=== PATIENT | female | born 1975 | race Caucasian/White ===

== ENCOUNTER → 2016-05-16 | Outpatient (CLI) | payer BC ==
--- NOTE | 2016-05-16 16:17 | DI ---
MRI LUMBAR SPINE W/O CN,05/16/2016 10:10 AM: Clinical History: Osteoarthritis of the spine with radiculopathy of the lumbar region. Previous Exam: None at this facility. Findings: Multiplanar MR images are obtained through the lumbar spine without contrast. Bony alignment is anato jodee. No fractures are seen. Marrow signal is preserved. The kidneys are normal. The paraspinal musculature is unremarkable. There is grade 1 retrolisthesis of L4 on L5 without evidence of spondylolysis nor spondylolisthesis. The major vascular flow voids are unremarkable. The spinal cord descends normally with normal course, caliber and signal characteristics with a pool l conus at the L2 level. Individual intervertebral disc spaces: L1/2: No significant stenosis. L2/3: No significant stenosis. L3/4: No significant stenosis. L4/5: There is grade 1 retrolisthesis of L4 and L5 with disc desiccation and a broad-based disc bulge combining with facet and ligamentum flavum hypertrophy causing no significant stenosis. L5/S1: There is disc desiccation, loss of intervertebral disc height and endplate degenerative change s with some facet and ligamentum flavum hypertrophy contributing to moderate to severe left lateral r ecess stenosis and mild right lateral recess stenosis. Impression:
--- NOTE | 2016-05-16 16:29 | DI ---
XR T-SPINE 2VW,05/16/2016 10:10 AM: Clinical History: Thoracic radiculopathy. Previous Exam: None at this facility. Findings: AP and lateral views of the thoracic spine are obtained, and demonstrate 26? of levoscoliosis of the upper thoracic spine centered at the T3/4 level. The lungs are clear. Impression: Levoscoliosis of the upper thoracic spine at the T3/4 level measuring approximately 26?.
--- NOTE | 2016-05-16 16:32 | DI ---
XR L-SPINE MIN 4 VW,05/16/2016 10:10 AM: Clinical History: Osteoarthritis of the spine with radiculopathy of the lumbar region. Previous Exam: None at this facility. Findings: AP, lateral, flexion and extension views of the lumbar spine are obtained, and demonstrate some gentl e levoscoliosis of the lumbar spine centered at the L2/3 level. There are degenerative changes of the posterior articulating facets. There is vacuum disc phenomenon and near complete loss of interverteb ral disc height at L5/S1. No pathologic calcifications are seen. A nonobstructive bowel gas pattern is noted. Impression: Mild levoscoliosis of the mid lumbar spine. Degenerative changes of L5/S1.
== END ==
LOC: MRI 10:00
PROVIDERS: ATTEND Neurological Surgery
DX: M47.26 Other spondylosis with radiculopathy, lumbar region (principal); M54.14 Radiculopathy, thoracic region; M51.37 Other intervertebral disc degeneration, lumbosacral region
CPT/HCPCS: 72070; 72110; 72148

== ENCOUNTER → 2016-05-17 | Outpatient (CLI) | payer BC ==
--- NOTE | 2016-05-17 16:34 | DI ---
MRI THORACIC SPINE W/O CN,05/17/2016 10:27 AM: Clinical History: Thoracic radiculopathy. Previous Exam: No other previous MRI comparison. Findings: Multiplanar MR images are obtained through the thoracic spine without contrast. There is levoscoliosis of the thoracic spine centered at the T2/3 level. There is some compensatory d extroscoliosis at the T6/7 level. Vertebral body height is preserved. There is some disc desiccation at the C6/7 level with a broad-bas ed disc bulge only partially visible on this exam but causing at least mild neural foraminal narrowin g. The spinal cord descends normally with normal course and caliber. There is fluid signal within the ce ntral spinal cord which is visible extending from T4-T11. C7/T1: No significant stenosis. T2/3: No significant stenosis. T3/4: There is disc desiccation and a broad-based disc bulge contributing to mild central canal steno sis without significant neural foraminal narrowing. T4/5: No significant stenosis. T5/6: Mild disc desiccation and no significant stenosis. T6/7: There is disc desiccation and a broad-based disc bulge causing mild central canal stenosis with out significant neural foraminal narrowing. T7/8: No significant stenosis. T8/9: There is disc desiccation and a broad-based disc bulge without significant stenosis. T9/T10: No significant stenosis. T10/11: No significant stenosis. T11/12 and T12/L1: No significant stenosis. Impression: 1. S-shaped scoliosis of the thoracic spine as above. 2. Disc desiccation at multiple levels without significant broad-based disc bulge. 3. Prominence of the central canal within the spinal cord extending from T4-T11. This most likely rep resents a prominent central canal. This is usually a normal variant. Rarely, this can represent syrin gomyelia, but this usually presents with deficits in pain and sensation corresponding with the affect ed levels. Correlate clinically.
== END ==
LOC: MRI 10:22
PROVIDERS: ATTEND Physician Assistant
DX: M54.14 Radiculopathy, thoracic region (principal); M51.34 Other intervertebral disc degeneration, thoracic region; M41.84 Other forms of scoliosis, thoracic region
CPT/HCPCS: 72146

== ENCOUNTER → 2016-05-17 | Outpatient (CLI) | payer BC ==
[2016-05-17 17:52] LABS: ASPARTATE AMINO TRANSFERASE 22 IU/L (8-39); BILIRUBIN,TOTAL 0.2 mg/dL (0.3-1.2); BLOOD UREA NITROGEN 17 mg/dL (7-22); BUN/CREATININE RATIO 24.28 (6-20); C-REACTIVE PROTEIN 1.5 mg/dL (0.0-0.9); CALCIUM 9.8 mg/dL (8.7-10.7); CHLORIDE 104 meq/L (98-112); CREATININE 0.7 mg/dL (0.50-1.20); EST GLOMERULAR FILTRATION > 60 (>60 ml/min/1.73m(2)); GLUCOSE 116 mg/dL (78-110); POTASSIUM 4.4 meq/L (3.8-5.2); SODIUM 136 meq/L (135-145); TOTAL PROTEIN 7.1 g/dL (6.1-8.0)
== END ==
LOC: LAB 17:17
PROVIDERS: ATTEND Family Medicine
DX: R06.09 Other forms of dyspnea (principal); M54.5 Low back pain; F17.210 Nicotine dependence, cigarettes, uncomplicated
CPT/HCPCS: 36415; 80053; 85379; 85652; 86140

== ENCOUNTER → 2016-05-29 | Outpatient (CLI) | payer BC ==
--- NOTE | 2016-05-31 09:23 | DI ---
STANDING SCOLIOSIS SERIES, 05/29/2016 8:53 AM: Clinical History: Scoliosis. Previous Exam: None at this facility. Standing AP and lateral views are submitted. The vertebral bodies are of normal height and size. The disc spaces are normal. The pedicles and posterior elements are unremarkable. There is dextroscolios is of the cervical thoracic junction and the lower thoracic spine with levoscoliosis of the upper tho racic spine and the mid lumbar spine. Brown angles for the thoracic and lumbar regions are 10 degrees, 21 degrees, 15 degrees, and 14 degrees, respectively. The pelvis is tilted in the right side of the pelvis is higher than the left side. Spinal-Pelvic Relationship Measurements: SVA: -2 mm. T1 Tilt: -4 degrees. PT: 7 degrees. PI: 54 degrees. SS: 47 degrees. LL: 64 degrees. TK: 32 degrees. Readin. Scoliosis as above with the respective the pelvis is tilted so that the right side of the pelvis is situated higher than the left side. 2. Spinal-pelvic relationship measurements as above.
== END ==
LOC: RAD 08:46
PROVIDERS: ATTEND Physician Assistant
DX: M41.25 Other idiopathic scoliosis, thoracolumbar region (principal)
CPT/HCPCS: 72082

== ENCOUNTER → 2016-06-05 | Outpatient (CLI) | payer BC ==
--- NOTE | 2016-06-06 16:45 | DI ---
MRI THORACIC SPINE SCAN WITHOUT AND WITH IV CONTRAST, 06/05/2016 11:10 AM: Clinical History: Syrinx of the thoracic cord. Previous Exam: 05/17/2016. Technique: Sagittal precontrast and sagittal and axial postcontrast T1 weighted scans are supplemente d with a coronal T2 weighted scans. 15 mL of OptiMARK MRI contrast was injected IV. There is levoscoliosis of the upper thoracic spine with a compensatory dextroscoliosis of the lower t horacic spine. The vertebral bodies are of normal height and size. The disc spaces are normal. The pr evious study demonstrated a syrinx between T6-T10 and on the current study with the T1-weighted seque nces, the syrinx is visible primarily between T7 and T9 and this is because of the signal intensity f or fluid on the T1-weighted sequence. Following contrast, no abnormal enhancing lesion is seen within the cord. There is no extradural lesion or enhancement and there is no intradural extramedullary les ion or enhancement. Reading: With the T1-weighted sequences, the syrinx in the thoracic cord is not as well demonstrated as was se en on the T2-weighted images from the study of 05/17/2016. Following contrast, no abnormal enhancement is identified.
== END ==
LOC: MRI 11:03
PROVIDERS: ATTEND Physician Assistant
DX: G95.0 Syringomyelia and syringobulbia (principal)
CPT/HCPCS: 72147; A9579

== ENCOUNTER → 2016-06-06 | Outpatient (CLI) | payer BC ==
--- NOTE | 2016-06-06 13:28 | DI ---
MRI CERVICAL SPINE SCAN, 06/06/2016 11:03 AM: Clinical History: Cervical radiculopathy. Previous Exam: None. Sequences: Sagittal T1and T2 weighted. Axial T2 PLUS and FE 3D DUAL. Coronal T1 scans through the upp er cervical spine. The vertebral bodies are of normal height and size. There is levoscoliosis of the upper thoracic spin e. Severe disc space narrowing is present at C6-7. The remaining disc spaces are of normal height and all cervical disc spaces show mild to moderate desiccation change. The cervical cord and cerebellar tonsils are normal. The disc spaces from C2-3 through C5-6 are normal. C6-7 has a bulging but not her niated disc without canal or significant neural foraminal stenosis. C7-T1 and T1-2 disc spaces are no rmal. T2-3 through T5-6 disc spaces have bulging but not herniated discs without canal or neural fora darren stenosis. Readin. There are bulging but not herniated discs without canal or neural foraminal stenosis at C6-7 and T2- through T5-6. 2. The disc spaces from C2-3 through C5-6 and at C7-T1 and T1-2 are normal.
== END ==
LOC: MRI 11:01
PROVIDERS: ATTEND Physician Assistant
DX: M54.12 Radiculopathy, cervical region (principal); M47.813 Spondylosis without myelopathy or radiculopathy, cervicothoracic region
CPT/HCPCS: 72141

== ENCOUNTER → 2016-06-14 | Outpatient (CLI) | payer BC ==
--- NOTE | 2016-06-17 08:57 | DI ---
XR C-SPINE COMPLETE MIN 4VW,06/14/2016 9:24 AM: Clinical History: Osteoarthritis with radiculopathy Previous Exam: None at this facility. Findings: AP, lateral, flexion and extension views of the cervical spine are obtained, and demonstrate degenera tive disc disease worst at the C6/7 level where there is loss of intervertebral disc height and endpl ate osteophyte formation. There are also uncovertebral joint osteophytes at this level. There is no i nstability on flexion or extension. The prevertebral soft tissues are unremarkable. Impression: Degenerative disc disease at C6/7 as above otherwise unremarkable.
== END ==
LOC: RAD 09:21
PROVIDERS: ATTEND Physician Assistant
DX: M47.22 Other spondylosis with radiculopathy, cervical region (principal)
CPT/HCPCS: 72050

== ENCOUNTER → 2016-07-30 | Outpatient (CLI) | payer BC ==
[2016-07-30 12:50] LABS: BASOPHILS # (AUTO) 0.02 10*3/UL; BASOPHILS % (AUTO) 0.4 % (0-1); EOSINOPHILS % (AUTO) 1.9 % (0-8); HEMATOCRIT 35.5 % (37.0-47.0); HEMOGLOBIN 10.7 g/dL (12.0-16.0); LYMPHOCYTES # (AUTO) 1.69 10*3/uL; MEAN CORPUSCULAR HGB CONC 30.1 g/dL (33-37); MEAN CORPUSCULAR VOLUME 82.9 FL (81-99); MEAN PLATELET VOLUME 11.6 FL (7.4-12.2); MONOCYTES # (AUTO) 0.34 10*3/UL (0.3-0.8); MONOCYTES % (AUTO) 6.4 % (5-15); NEUTROPHILS # (AUTO) 3.18 10*3/UL; NEUTROPHILS % (AUTO) 59.5 % (50-80); RED BLOOD COUNT 4.28 10^6/uL (4.20-5.40)
[2016-07-30 12:52] LABS: PLATELET MORPHOLOGY COMMENT NORMAL MORPHOLOGY (NORM); RBC MORPHOLOGY COMMENT NORMAL MORPHOLOGY (NORM); WBC MORPHOLOGY COMMENT NORMAL MORPHOLOGY (NORM)
[2016-07-30 13:11] LABS: BLOOD UREA NITROGEN 18 mg/dL (7-22); CALCIUM 8.7 mg/dL (8.7-10.7); EST GLOMERULAR FILTRATION > 60 (>60 ml/min/1.73m(2)); LIPASE 57 IU/L (23-300); SERUM ALBUMIN 3.6 g/dL (3.5-4.8)
== END ==
LOC: MOB LAB 11:25
PROVIDERS: ATTEND Surgery
DX: R10.11 Right upper quadrant pain (principal)
CPT/HCPCS: 36415; 80053; 82150; 83690; 85025

== ENCOUNTER → 2016-07-31 | Outpatient (CLI) | payer BC ==
[2016-08-02 13:22] LABS: PARASITIC EXAM FIN 1218 (())
== END ==
LOC: LAB 17:13
PROVIDERS: ATTEND Surgery
DX: R19.7 Diarrhea, unspecified (principal)
CPT/HCPCS: 87046; 87177; 87209; 87328; 87329; 87493

== ENCOUNTER 2016-09-19 11:01 | Emergency (ER) | payer BC ==
[2016-09-19 11:27] VITALS: RESP 15; TEMP 97.2
[2016-09-19] MEDS ORDERED: MEPERIDINE HCL/PF 100 MG/1 ML INJECTION IM ONE (12:03)
--- NOTE | 2016-09-19 12:17 | PDOC ---
Back Pain / Injury HPI - General Chief Complaint: Neck / Back Complaint Stated Complaint: back pain Date Seen by Provider: 09/19/16 Time Seen by Provider: 11:15 Source: Patient Exam Limitations: POSITIVE: No limitations Nurse's Notes Reviewed & Considered: Yes - History of Present Illness Initial Comments: The patient is a 41-year-old female who presents to the emergency room with a chief complaint of low back pain. Recent past medical history is significant in that the patient underwent an L4-L5-S1 lumbar fusion in [place] on 20 August. She states that she has a 7 year history of chronic back pain. She states that 4 days ago she stumbled when her left leg "gave out" and this exacerbated her pain. 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 She was last evaluated postoperatively by her neurosurgeon in [place] on 06 September, and is scheduled for reevaluation again on 27 September. Patient states she has had some "numbness" proximal aspect of both lower extremities, and her neurosurgeon is aware of this. She denies any neck motor weakness. No fevers or chills. No GI or symptoms. Body Location Affected: REPORTS: Back (Lower back) Timing: REPORTS: Constant Duration: <1 week (Exacerbation of chronic low back pain for about the past 4-5 days) Severity: Moderate Quality: REPORTS: "Pain" Context: REPORTS: Fall Location at Time of Onset: REPORTS: Home Modifying Factors: improves with: Movement (Discomfort with movement) Associated Symptoms: REPORTS: Back pain, Numbness (Proximal portion of both lower extremities as above). DENIES: Bloody Emesis, Chest pain, Coffee Grounds Emesis, Chills, Diaphoresis, Fever, Fatigue, Headache, Heartburn, Loss of Appetite, Nausea, Rash, Shortness of breath, Swelling/mass in abdomen, Syncope, Testicular Pain, Vomiting, Weakness, Grossly Bloody Diarrhea, Constipation, Diarrhea, Dysuria, Incontinent Stool, Incontinent Urine, Mucous Diarrhea, Difficulty Walking, Dizziness, Light Headedness Similar Symptoms Previously: Yes (7 year history of chronic low back pain as above) Recent Care Received: REPORTS: Recently Seen, Treated by MD, Hospitalized, Surgery (L4-L5-S1 lumbar fusion done 20 August as above) Any Prior Injuries Related to Current Complaint?: Yes (as above; 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) - Patient Home Medications Home Medications: Home Medications Albuterol Sulfate [Proair Hfa] 1 - 2 puff INH Q4-6H #1 puff 05/31/16 Fluticasone/Salmeterol [Advair 100-50 Diskus] 1 puff INH BID #1 puff 05/31/16 Naproxen 1 tab PO BID #60 tab 05/31/16 Gabapentin 2 tab PO TID #180 tab 07/24/16 Amitriptyline HCl 1 tab PO QHS #30 tab 08/07/16 Amlodipine Besylate 1 tab PO DAILY #30 tab 08/07/16 Lisinopril 1 tab PO DAILY #30 tab 08/07/16 Alprazolam [Xanax] 1 tab PO QD PRN #30 tab 08/23/16 Bupropion HCl [Wellbutrin Sr] 1 tab PO BID #60 tab 08/23/16 Cyclobenzaprine HCl 1 tab PO TID tab 08/23/16 Hydrocodone Bit/Acetaminophen [[place] 10-325 Tablet] 1 tab PO Q6H PRN #25 tab - Patient Allergies Allergies/Adverse Reactions: Allergies Allergy/AdvReac Type Severity Reaction Status Date / Time tramadol AdvReac Mild Itching Verified 09/19/16 11:13 Past Medical History - heen HEENT History: Denies History Cardiovascular History: Hypertension Respiratory History: COPD, Other (please comment) Additional Respiratory History: smoker Gastrointestinal History: GERD, Pancreatitis Additional Gastrointestinal History: ABD PAIN, DIARRHEA. HOSPITAL ADMISSION FOR PANCREATITIS Genitourinary History: Denies History Endocrine History: Denies History Musculoskeletal History: Back Pain, Other (please comment) Additional Musculoskeletal History: chronic neck/back pain Neurological History: Denies History Blood Disorders: Anemia Psychiatric History: Depression, Anxiety Disorders Female Reproductive History: Denies History LMP: 09/10/17 Obstetrical History: Denies History Cancer History: Denies History In Past Year Been Physically Harmed or Verbally Threatened: No History of MDRO: No Tobacco Use: Current Every Day Smoker Alcohol Use: None Substance Use Type: None Previous Surgical History: Yes Type / Date of Surgery: T&A/ CERVICAL LEEP/hernia repair. L4,L5,S1 FUSION Anesthesia Reactions: No Malignant Hyperthermia: No Significant Family History: No pertinent family hx Past Medical History Reviewed: Reviewed - No Changes ROS - Limitations ROS Limitations: No Limitations Constitution: REPORTS: Denies Symptoms Cardiovascular: REPORTS: Denies Cardiac Symptoms Respiratory: REPORTS: Denies Resp Symptoms Neurological: REPORTS: Denies Neuro Symptoms, Numbness Gastrointestinal: REPORTS: Denies GI Symptoms Endocrine: REPORTS: Denies Symptoms Musculoskeletal: REPORTS: Back Pain (Low back pain as above), Recent Injury (As above) Genitourinary: REPORTS: Denies Symptoms Eyes: REPORTS: Denies Symptoms ENT: REPORTS: Denies Symptoms Skin: REPORTS: Denies Skin Symptoms Lympathic: REPORTS: Denies Lympathic Symptoms Immunologic: POSITIVE: Denies Symptoms Psychiatric: POSITIVE: Denies Psych Symptoms Back Physical Assessment - General Appearance General Appearance: REPORTS: Alert, Cooperative, No Evidence of Trauma, Mild Distress (Due to low back pain) - HEENT HEENT: POSITIVE: Head Inspection Nml, Eyes Inspection Nml, Ears Inspection Nml, Nose Inspection Nml, Oral/Dental Inspect. Nml, Pharynx Inspect. Nml, PERRL, EOMI - Pupil Size Pupil Size: 3 mm: Bilateral (PERRLA) - Neck Neck: POSITIVE: Non Tender, Painless ROM, Trachea Midline, Nexus Criteria Negative - Respiratory / CVS Respiratory / CVS: POSITIVE: Chest Non Tender, No Ecchymosis, Breath Sounds Normal, No Respiratory Distress, Heart Sounds Normal, Regular Rate/Rhythm - Abdomen Abdomen: Soft: (All Quadrants), Normal Bowel Sounds: (All Quadrants), Denies Tenderness: (All Quadrants), No Splenomegaly: (All Quadrants), No Hepatomegaly: (All Quadrants), No Guarding: (All Quadrants), No Rebound: (All Quadrants), No Palpable Pulse: (All Quadrants), No Palpabale Mass: (All Quadrants), No Distention: (All Quadrants), No Rigidity: (All Quadrants) - Back Back: REPORTS: No Vertebral Tenderness, Limited ROM, See Diagram. DENIES: Normal Inspection (Well-healed surgical scar lumbar area; no redness, drainage or signs of infection.), No CVA Tenderness, Non Tender (Tender on palpation over the paralumbar area bilaterally), Painless ROM (Pain with extension and flexion), Vertebral Pt. 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 No gross abnormalities otherwise. - Patient's Progress Pain Medication Addressed: POSITIVE: Yes (Patient given 100 mg Demerol IM and prescribed [place], 10/325 one every 6 hours as necessary for pain) School/Work Release Addressed: POSITIVE: Yes (Recommended no work for 72 hours, and then to lift no more than 10 pounds until cleared for increased activity by her neurosurgeon.) Re-Examine Time: 12:00 Status: POSITIVE: Unchanged, Re-Examined - Consult Counseled: POSITIVE: Patient, RE: Radiology Results, RE: DX, RE: Need for F/U Patient Care Time - Estimated PCT Patient Care Time (In Minutes): 32 Vital Signs - Recent Vital Signs Vital Signs: Vital Signs (Last 8 hours) Temp Pulse Resp BP Pulse Ox 09/19/16 11:12 97.2 F 107 H 15 119/59 94 - VS Reviewed Vital Signs Reviewed: Yes Discharge Clinical Impression: Chronic back pain, Post-op pain Discharge Disposition: Discharged to Home Condition: Stable Prescriptions / Orders: Hydrocodone Bit/Acetaminophen [[place] 10-325 Tablet] 1 tab PO Q6H PRN #25 tab PRN Reason: Pain Patient Instructions Given at Discharge: Low Back Strain (ED), Chronic Back Pain (ED) Additional Instructions: Rest. No work for 72 hours. Not to lift over 10 pounds at work until cleared for this activity by your neurosurgeon. Continue [place], one every 6 hours as necessary for pain. Follow-up with your neurosurgeon on 27 September, as is already arranged. Return here anytime if condition worsens in any way. Follow Up With: HEDY WREN [Primary Care Provider] - (Instructions as above. Follow-up with your neurosurgeon and primary care provider. Return as necessary.)
--- NOTE | 2016-09-19 12:59 | DI ---
XR L-SPINE 2-3 VW,09/19/2016 11:32 AM: Clinical History: Back pain status post recent fusion. Previous Exam: 05/16/16 Findings: AP, lateral and coned-down views of the lumbar spine are obtained, and demonstrate some stable levosc oliosis of the lumbar spine. There is transpedicular screw and plate fixation of L4-S1. There is a sm all fracture through the superior endplate of the L4 vertebral body likely related to prior surgery. There is also new calcified fusion of the transverse processes. A nonobstructive bowel gas pattern is seen. Patient is status post laminectomies at L4 and L5. No pathologic calcifications are seen. Impression: Postsurgical changes consistent with transpedicular, interbody and transverse fusion of L4-S1. There is a new fracture involving the fourth vertebral body. This may represent a fracture of the vertebral body or the pedicle although this is not well seen. CT may delineate the process more clearly.
== END 2016-09-19 12:53 | disposition home or self-care (01) ==
LOC: ER 11:01
DX: G89.18 Other acute postprocedural pain (principal); M54.5 Low back pain; R20.0 Anesthesia of skin; I10 Essential (primary) hypertension
CPT/HCPCS: 72100; 96372; 99283; J2175

== ENCOUNTER → 2016-09-26 | Outpatient (CLI) | payer BC ==
--- NOTE | 2016-09-26 22:07 | DI ---
CT LUMBAR SPINE SCAN, 09/26/2016 11:54 AM : Clinical History: Back pain. Status post multilevel fusions. Previous Exam: None at this facility. Scans are obtained from the T11 disc space to S4. without IV contrast using standard bone enhancement algorithms and with a metal artifact reduction algorithm. Sagittal and coronal reformatted images ar e generated. Curved coronal reformatted images and axial reformatted images angled through the disc s paces are also performed. The vertebral bodies are of normal height and size. The patient is status post L4 and L5 laminectomie s with anterior and posterior fusions at L4-5 and L5-S1. Anterior fusions are performed with bone gra ft cages, and posterior fusions are accomplished with metallic struts transfixed with pedicle screws from L4-S1 as well as bone grafts. The height of the bone graft cage at L4-5 is greater than the heig ht of the bone graft cage at L5-S1. There is a fracture that courses transversely and inferiorly thro ugh the superior endplate of L4 in the posterior fourth of the L4 vertebral body. This fracture then extends horizontally and posteriorly through the superior half of each pedicle, and then continues in to the superior facets of L4 bilaterally. The appearance is consistent with a stress fracture. Enterprise Solutions Architect ior alignment between the posterior margin of L3 and the small fracture fragment of the posterior asp ect of L4 is normal. However, the body of L4 is displaced anteriorly relative to the body of L3 by ab out 2-3 mm. This amount of displacement corresponds to the distraction between the body of L4 and the small fracture fragment of L4. The fusions anteriorly at L4-5 and L5-S1 are not solid. The bone patti ts posteriorly are also not solid. The pedicles from T12-L3 are normal. There is disc space narrowing at L3-4. Axial and sagittal scans through T12-L1 through L2-3 are normal. L3-4 has a circumferentially bulging but not herniated disc without canal or neural foraminal stenosis. Artifacts are present at the L4-5 and L5-S1 disc space levels but there is no canal or neural foraminal stenosis at either level. READIN. Status post anterior and posterior fusions at L4-5 and L5-S1 with laminectomies at L4 and L5. The anterior and posterior fusions are not solid. 2. The bone graft cage height at the L4-5 level is greater than that at the L5-S1 level. There is a transverse fracture through the posterior fourth of the superior endplate of the body of L4 and this fracture then extends inferiorly to the superior margin of each pedicle screw and then courses marriage and family social worker iorly and bilaterally into the superior facets of L4. There is resultant posterior displacement of th e small fracture fragment of the body of L4. This results in distraction of that small fragment by ap proximately 2-3 mm. This fracture probably is a stress fracture and may be unstable. 3. There is no canal or neural foraminal stenosis at L4-5 and L5-S1. 4. There is a bulging but not herniated disc without canal or neural foraminal stenosis at L3-4. 5. The disc spaces from T12-L1 through L2-3 are normal.
== END ==
LOC: US 11:19
PROVIDERS: ATTEND Neurological Surgery
DX: Z48.811 Encounter for surgical aftercare following surgery on the nervous system (principal); Z98.1 Arthrodesis status
CPT/HCPCS: 72131

== ENCOUNTER → 2016-10-07 | Outpatient (CLI) | payer BC ==
--- NOTE | 2016-10-07 15:15 | DI ---
MRI LUMBAR SPINE SCAN WITHOUT IV CONTRAST, 10/07/2016 9:54 AM: Clinical History: Low back pain with radiculopathy. Previous Exam: 05/16/2016. Comparison is also made with a CT scan of the lumbar spine from 09/26/2016. Technique: Sagittal and axial T2 weighted; sagittal T1 weighted and T2 STIR; and axial PD. The vertebral bodies are of normal height and size. On the axial scans through the superior half of L 4, the fracture lucency seen on the CT scans is again visible. This extends inferiorly and then poste riorly. The fracture fragment has high signal intensity on the T2 and STIR sequences indicating the f racture is either acute or subacute. The patient is status post anterior and posterior fusions at L4- 5 and L5-S1. Posterior fusions are accomplished with metallic struts transfixed with pedicle screws a s well as bone grafts. There is disc space narrowing at L3-4 with normal signal. The remaining disc s paces are of normal height and signal pattern. The cord terminates at L1. The conus medullaris is nor mal. The disc spaces from T10-11 through L2-3 are normal. L3-4 has a mild circumferentially bulging b ut not herniated disc without canal or neural foraminal stenosis. L4-5 and L5-S1 show laminectomies w ith anterior and posterior fusions. These fusions are not solid. There is no canal or neural foramina l stenosis at L4-5. L5-S1 also shows no canal or neural foraminal stenosis. In the midline posteriorl y between the 2 cortical graft halves, there is bulging of material that probably represents bone gra fts extending into the anterior extradural space. In the posterior extradural space at L4-5 and L5-S1 , soft tissue is present without any fat and this probably represents postsurgical scarring. Superfic ial to the muscle fascia within the subcutaneous fat at the surgical incision is a small fluid collec tion that probably represents a postoperative seroma. This does not communicate with the thecal sac. Readin. Status post L4 and L5 laminectomies with anterior and posterior fusions at L4-5 and L5-S1. These fusions are not solid. There is no canal or neural foraminal stenosis at L4-5 and L5-S1, but there ma y be extension of some bone grafts into the anterior extradural space in the midline at L5-S1. There is a fracture through the superior and posterior margin of the body of L4 and the fracture does exten d posteriorly toward the pedicles. 2. There is a bulging but not herniated disc without canal or neural foraminal stenosis at L3-4. 3. The disc spaces from T10-11 through L2-3 are normal.
== END ==
LOC: MRI 09:50
PROVIDERS: ATTEND Neurological Surgery
DX: M51.16 Intervertebral disc disorders with radiculopathy, lumbar region (principal); M84.48XA Pathological fracture, other site, initial encounter for fracture; M47.816 Spondylosis without myelopathy or radiculopathy, lumbar region
CPT/HCPCS: 72148

== ENCOUNTER 2016-10-18 10:24 | Emergency (ER) | payer BC ==
[2016-10-18] MEDS ORDERED: KETOROLAC 15 MG/1 ML VIAL IVP ONE (10:45)
[2016-10-18] MEDS ORDERED: ONDANSETRON 4 MG/2 ML VIAL IVP ONE (10:45)
[2016-10-18] MEDS ORDERED: Sodium Chloride 0.9% 1,000 ML PRIMARY IV ONE (10:45)
--- NOTE | 2016-10-18 10:51 | PDOC ---
Gen Adult / Medical Screen HPI - General Chief Complaint: General Medical Stated Complaint: rt knee pain and back pain Date Seen by Provider: 10/18/16 Time Seen by Provider: 10:46 Source: POSITIVE: Patient, Spouse Exam Limitations: POSITIVE: No limitations Nurse's Notes Reviewed & Considered: Yes - Indicators Temperature Between 95 and 101 Degrees: Yes Respirations Between 12 and 20: Yes Blood Pressure Between 100-165 (sys) and 60-100 (ruiz): No (174/103 ) Pulse Range Between 60-105 (100 for age > 60 years): Yes Severe Pain (Greater than 5/10 Reported): Yes Chest or Abdominal Pain: No Inability to Walk: No (difficulty ambulating) Pt Reports Active High Risk Cond. (TB/Hepatitis/HIV/Chemo): No Abnormal Mental Status: No - History of Present Illness Initial Comments: This is a pleasant 41-year-old female who is complaining of right knee pain and right-sided lumbar pain with radiation down the sciatic distribution. Patient with a recent history of lumbar fusion L3 L4 L5 and S1 experienced a fall yesterday tripping over her dog. She landed on her right knee and huong her back. She has a history of recent fusion, fracture with hardware, and replacement of hardware. She denies any headache, nausea vomiting or diarrhea, chest pain or shortness of breath, hematuria or dysuria, no incontinence of urine or stool. Body Location Affected: REPORTS: Lower Extremity (R), Back Timing: REPORTS: Abrupt Duration: <24 hours Similar Symptoms Previously: No Recent Care Received: REPORTS: Treated by MD, Hospitalized Any Prior Injuries Related to Current Complaint?: No - Patient Home Medications Home Medications: Home Medications Albuterol Sulfate [Proair Hfa] 1 - 2 puff INH Q4-6H #1 puff 05/31/16 Gabapentin 2 tab PO TID #180 tab 07/24/16 Amlodipine Besylate 1 tab PO DAILY #30 tab 08/07/16 Lisinopril 1 tab PO DAILY #30 tab 08/07/16 Bupropion HCl [Wellbutrin Sr] 1 tab PO BID #60 tab 08/23/16 Amitriptyline HCl 1.5 tab PO QHS #45 tab 09/30/16 Alprazolam [Xanax] 1 tab PO QD PRN #30 tab 10/03/16 Metaxalone [Skelaxin] 800 mg PO TID PRN 10/18/16 - Patient Allergies Allergies/Adverse Reactions: Allergies Allergy/AdvReac Type Severity Reaction Status Date / Time tramadol AdvReac Mild Itching Verified 10/18/16 10:46 Past Medical History - heen HEENT History: Denies History Cardiovascular History: Hypertension Respiratory History: COPD, Other (please comment) Additional Respiratory History: smoker Gastrointestinal History: GERD, Pancreatitis Additional Gastrointestinal History: ABD PAIN, DIARRHEA. HOSPITAL ADMISSION FOR PANCREATITIS Genitourinary History: Denies History Endocrine History: Denies History Musculoskeletal History: Back Pain, Other (please comment) Additional Musculoskeletal History: chronic neck/back pain Neurological History: Denies History Blood Disorders: Anemia Psychiatric History: Depression, Anxiety Disorders Cancer History: Denies History History of MDRO: No Alcohol Use: None Substance Use Type: None Previous Surgical History: Yes Type / Date of Surgery: T&A/ CERVICAL LEEP/hernia repair. L4,L5,S1 FUSION Anesthesia Reactions: No Malignant Hyperthermia: No Significant Family History: No pertinent family hx ROS - Limitations ROS Limitations: No Limitations Constitution: REPORTS: Denies Symptoms Cardiovascular: REPORTS: Denies Cardiac Symptoms Respiratory: REPORTS: Denies Resp Symptoms Neurological: REPORTS: Difficulty Walking (Secondary to pain in her right leg and lower back) Gastrointestinal: REPORTS: Denies GI Symptoms Endocrine: REPORTS: Denies Symptoms Musculoskeletal: REPORTS: Back Pain Genitourinary: REPORTS: Denies Symptoms Eyes: REPORTS: Denies Symptoms ENT: REPORTS: Denies Symptoms Skin: REPORTS: Denies Skin Symptoms Lympathic: REPORTS: Denies Lympathic Symptoms Immunologic: POSITIVE: Denies Symptoms Psychiatric: POSITIVE: Denies Psych Symptoms Gen Adult/Medical Screen Exam - General Appearance General Appearance: POSITIVE: Alert, Cooperative, No Evidence of Trauma, Moderate Distress - HEENT HEENT: POSITIVE: Head Inspection Nml, Eyes Inspection Nml, Ears Inspection Nml, Nose Inspection Nml, Oral/Dental Inspect. Nml, Pharynx Inspect. Nml, PERRL, EOMI - Pupils Pupil Size: 4 mm: Bilateral - Neck Neck: POSITIVE: Normal Inspection, Thyroid Normal - Respiratory Respiratory: POSITIVE: No Respiratory Distress, Breath Sounds Normal, Chest Non- Tender - Cardiovascular Cardiovascular: POSITIVE: Regular Rate & Rhythm, No Murmur, No Gallop, PMI Normal Peripheral Pulses: Radial (R): 3+ - Abdomen Abdomen: Soft: (All Quadrants), Normal Bowel Sounds: (All Quadrants), Denies Tenderness: (All Quadrants), No Splenomegaly: (All Quadrants), No Hepatomegaly: (All Quadrants), No Guarding: (All Quadrants), No Rebound: (All Quadrants), No Palpable Pulse: (All Quadrants), No Palpabale Mass: (All Quadrants), No Distention: (All Quadrants), No Rigidity: (All Quadrants) - Back Back: POSITIVE: Lumbosacral Tenderness (Right sided) - Neurological / Psychological Mental Status: POSITIVE: Mood Normal, Affect Normal Orientation: POSITIVE: Oriented x 3 Reflexes: Patellar (R): 1+, Patellar (L): 1+ - Skin Skin: POSITIVE: Normal Color, Warm, Dry, No Rash - Extremities Extremity: Non-Tender: (All Extremities), Normal ROM: (All Extremities), Normal Inspection: (All Extremities), Pelvis Stable: (All Extremities) Procedures - Laceration/Wound Repair Did patient have a laceration repair: No Gen Adlt/Medical Scrn Progress - Results Reviewed by me Xrays/CTs/US Reviewed by me: Yes Discussed with Radiologist: Yes Lab Results Reviewed: Yes Lab Results:: Laboratory Results 10/18/16 Range/Units 11:30 WBC 5.56 (4.8-10.8) 10^3/uL RBC 3.64 L (4.20-5.40) 10^6/uL Hgb 9.5 L (12.0-16.0) g/dL Hct 30.2 L (37.0-47.0) % MCV 83.0 (81-99) FL MCH 26.1 L (27-31) PG MCHC 31.5 L (33-37) g/dL RDW Std Deviation 46.7 (39-50) fL RDW Coeff of Connor 15.9 H (11.5-14.5) % Plt Count 342 (140-350) 10*3/uL MPV 10.2 (7.4-12.2) FL Immature Gran % (Auto) 0.2 (0-5) % Neut % (Auto) 62.7 (50-80) % Lymph % (Auto) 27.0 (10-50) % Villalba % (Auto) 5.2 (5-15) % Eos % (Auto) 4.0 (0-8) % Baso % (Auto) 0.9 (0-1) % Immature Gran # (Auto) 0.01 10*3/UL Neut # (Auto) 3.49 10*3/UL Lymph # (Auto) 1.50 10*3/uL Villalba # (Auto) 0.29 L (0.3-0.8) 10*3/UL Eos # (Auto) 0.22 10*3/UL Baso # (Auto) 0.05 10*3/UL WBC Morphology Comment Normal morphology (NORM) Plt Morphology Comment Normal morphology (NORM) RBC Morph Comment Normal morphology (NORM) Sodium 140 (135-145) meq/L Potassium 3.2 L (3.8-5.2) meq/L Chloride 109 (98-112) meq/L Carbon Dioxide 21 L (23-33) meq/L Anion Gap 10 (5-20) BUN 9 (7-22) mg/dL Creatinine 0.6 (0.50-1.20) mg/dL Estimated GFR > 60 (>60 ml/min/1.73m(2)) BUN/Creatinine Ratio 15.00 (6-20) Glucose 92 (78-110) mg/dL Calculated Osmolality 288.0 (267-292) mOsm/kg Calcium 8.7 (8.7-10.7) mg/dL Magnesium 1.8 (1.6-2.4) mg/dL Total Bilirubin 0.4 (0.3-1.2) mg/dL AST 30 (8-39) IU/L ALT 33 (9-52) IU/L Alkaline Phosphatase 115 (38-126) IU/L Total Protein 6.7 (6.1-8.0) g/dL Albumin 3.6 (3.5-4.8) g/dL Globulin 3.1 (2.50-4.10) g/dL Albumin/Globulin Ratio 1.10 L (1.3-2.0) mg/g - Patient's Progress Pain Medication Addressed: POSITIVE: Yes Re-Examine Time: 14:52 Status: POSITIVE: Improved MDM / ED Course: Patient was examined, an IV started, blood drawn and sent to the laboratory for studies, radiographic examinations were obtained. Patient's pain improved with Toradol and Dilaudid. Findings: CBC shows white count to be normal. CT scan of her lumbar spine shows superior endplate of the third lumbar vertebra a fractured extension into the bilateral pedicles decompressing into the transpedicular screw holes. Assessment: Superior endplate fracture third lumbar vertebrae. No neurologic involvement at this time. Plan: Discharge home, bedrest, follow-up with Dr. Márquez first thing Friday. I was able to contact Dr. Márquez who advocated this plan and will see the patient in follow-up Friday. She is being discharged with a prescription for [place], instructions for bedrest, instructions to find other accommodations for the dog that she keeps tripping over. - Consult Consult (If Yes, Name of Consulting MD & Time Called): Yes (Dr. Márquez 14:45) Consulting MD will see pt:: POSITIVE: In Office Counseled: POSITIVE: Patient, Family, RE: Lab Results, RE: Radiology Results, RE : DX, RE: Need for F/U Patient Care Time - Estimated PCT Patient Care Time (In Minutes): 45 Vital Signs - Recent Vital Signs Vital Signs: Vital Signs (Last 8 hours) Temp Pulse Resp BP Pulse Ox 10/18/16 10:28 97.8 F 94 18 174/103 97 - VS Reviewed Vital Signs Reviewed: Yes Discharge Clinical Impression: Fracture of third lumbar vertebra Discharge Disposition: Discharged to Home Condition: Stable Patient Instructions Given at Discharge: Vertebral Compression Fracture (ED)
[2016-10-18 11:50] LABS: HEMATOCRIT 30.2 % (37.0-47.0); HEMOGLOBIN 9.5 g/dL (12.0-16.0); MEAN CORPUSCULAR HEMOGLOBIN 26.1 PG (27-31); MEAN CORPUSCULAR HGB CONC 31.5 g/dL (33-37); MEAN PLATELET VOLUME 10.2 FL (7.4-12.2); NEUTROPHILS % (AUTO) 62.7 % (50-80); RED BLOOD COUNT 3.64 10^6/uL (4.20-5.40)
[2016-10-18 11:51] LABS: BASOPHILS # (AUTO) 0.05 10*3/UL; BASOPHILS % (AUTO) 0.9 % (0-1); EOSINOPHILS # (AUTO) 0.22 10*3/UL; MONOCYTES # (AUTO) 0.29 10*3/UL (0.3-0.8); MONOCYTES % (AUTO) 5.2 % (5-15); NEUTROPHILS # (AUTO) 3.49 10*3/UL; PLATELET MORPHOLOGY COMMENT NORMAL MORPHOLOGY (NORM); RBC MORPHOLOGY COMMENT NORMAL MORPHOLOGY (NORM); WBC MORPHOLOGY COMMENT NORMAL MORPHOLOGY (NORM)
[2016-10-18 12:00] LABS: BLOOD UREA NITROGEN 9 mg/dL (7-22); CALCIUM 8.7 mg/dL (8.7-10.7); EST GLOMERULAR FILTRATION > 60 (>60 ml/min/1.73m(2)); MAGNESIUM 1.8 mg/dL (1.6-2.4); SERUM ALBUMIN 3.6 g/dL (3.5-4.8)
[2016-10-18] MEDS: HYDROmorphone 2 MG/1 ML IVP ONE ×2 (12:44→13:45)
--- NOTE | 2016-10-18 12:47 | DI ---
XR KNEE 3 VW,10/18/2016 10:45 AM: Clinical History: Pain status post fall. Previous Exam: None at this facility. Findings: 3 views of the right knee are obtained, and demonstrate anatomic alignment without fractures. The alva rounding soft tissues are unremarkable. Impression: Normal right knee.
[2016-10-18 13:34] VITALS: RESP 18; TEMP 97.8
--- NOTE | 2016-10-18 13:36 | DI ---
CT LUMBAR SPINE W/WO CONTRAST,10/18/2016 10:45 AM: Clinical History: Back pain status post fall. Previous Exam: September 26, 2016 Findings: Multiple helically acquired CT images are obtained through the lumbar spine without contrast. Sagitta l and coronal reconstructions are obtained, and demonstrate postsurgical changes consistent with short spedicular screw and plate fixation of the lower lumbar spine. There is bone grafting of the transver se processes. There are laminectomies noted from L3-L5. Visualized portions of the kidneys adrenals, pancreas and spleen are unremarkable as well. The transpedicular screws are intact. Intervertebral disc fusion devices are also intact. There is st ill some fragmentation of the pedicle of L4, but this was seen on the prior exam as well on the right . There is a new fracture involving the superior endplate of the third lumbar vertebral body which in volves both of the pedicles do include the area of the new transpedicular screws. This fragment is sl ightly displaced. Impression: 1. New fracture of the superior endplate of the third lumbar vertebral body which involves the pedicl es bilaterally decompressing into the transpedicular screw holes. 2. Other findings are chronic or postsurgical.
== END 2016-10-18 15:35 | disposition home or self-care (01) ==
LOC: ER 10:24
DX: S32.038A Other fracture of third lumbar vertebra, initial encounter for closed fracture (principal); M25.561 Pain in right knee; M54.5 Low back pain; Z98.1 Arthrodesis status; W01.0XXA Fall on same level from slipping, tripping and stumbling without subsequent striking against object, initial encounter
CPT/HCPCS: 72133; 73562; 80053; 83735; 85025; 96361; 96374; 96375; 99283 ×2; J1170; J1885; J2405; J7030

== ENCOUNTER 2016-10-20 21:01 | Emergency (ER) | payer BC ==
[2016-10-20 21:21] VITALS: RESP 20; TEMP 97.6
--- NOTE | 2016-10-21 | PDOC ---
Back Pain / Injury HPI - General Chief Complaint: Neck / Back Complaint Stated Complaint: PAIN NOT CONTROLED AFTER BEING SEEN ON FRIDAY Date Seen by Provider: 10/20/16 Time Seen by Provider: 23:55 Source: Patient Exam Limitations: POSITIVE: No limitations Nurse's Notes Reviewed & Considered: Yes - History of Present Illness Initial Comments: This is a 41-year-old female who presents to the emergency department with a history of worsening low back pain over the course of the day today. She has a history of a recent L3 fracture, as well as a previous L4-S1 fusion. She is currently in a lumbar back brace, but it does not seem to be helping control the pain. She is currently on [place] and a muscle relaxer for pain control. She states that she does have some new numbness in the right leg as well as sciatica. No new weakness, no loss of bowel or bladder control. Patient states she does have an appointment with Dr. Márquez tomorrow. - Patient Home Medications Home Medications: Home Medications Albuterol Sulfate [Proair Hfa] 1 - 2 puff INH Q4-6H #1 puff 05/31/16 Gabapentin 2 tab PO TID #180 tab 07/24/16 Amlodipine Besylate 1 tab PO DAILY #30 tab 08/07/16 Lisinopril 1 tab PO DAILY #30 tab 08/07/16 Bupropion HCl [Wellbutrin Sr] 1 tab PO BID #60 tab 08/23/16 Amitriptyline HCl 1.5 tab PO QHS #45 tab 09/30/16 Alprazolam [Xanax] 1 tab PO QD PRN #30 tab 10/03/16 Metaxalone [Skelaxin] 800 mg PO TID PRN 10/18/16 - Patient Allergies Allergies/Adverse Reactions: Allergies Allergy/AdvReac Type Severity Reaction Status Date / Time tramadol AdvReac Mild Itching Verified 10/20/16 21:03 Past Medical History - heen HEENT History: Denies History Cardiovascular History: Hypertension Respiratory History: COPD, Other (please comment) Additional Respiratory History: smoker Gastrointestinal History: GERD, Pancreatitis Additional Gastrointestinal History: ABD PAIN, DIARRHEA. HOSPITAL ADMISSION FOR PANCREATITIS Genitourinary History: Denies History Endocrine History: Denies History Musculoskeletal History: Back Pain, Other (please comment) Prosthesis or Implant: Yes Additional Musculoskeletal History: chronic neck/back pain Neurological History: Denies History Blood Disorders: Anemia Psychiatric History: Depression, Anxiety Disorders History of Sexually Transmitted Diseases: No Female Reproductive History: Denies History Obstetrical History: Denies History Cancer History: Denies History In Past Year Been Physically Harmed or Verbally Threatened: No History of MDRO: No Tobacco Use: Current Every Day Smoker Alcohol Use: None Substance Use Type: None Previous Surgical History: Yes Type / Date of Surgery: T&A/ CERVICAL LEEP/hernia repair. L4,L5,S1 FUSION Anesthesia Reactions: No Malignant Hyperthermia: No Significant Family History: No pertinent family hx Past Medical History Reviewed: Reviewed - No Changes ROS - Limitations ROS Limitations: No Limitations Constitution: REPORTS: Denies Symptoms Respiratory: REPORTS: Denies Resp Symptoms Neurological: REPORTS: Numbness Musculoskeletal: REPORTS: Back Pain Back Physical Assessment - General Appearance General Appearance: REPORTS: Alert, Cooperative, Lethargic, Spinal Immobilization - HEENT HEENT: NEGATIVE: Scleral Icterus - Respiratory / CVS Respiratory / CVS: POSITIVE: Breath Sounds Normal, No Respiratory Distress, Heart Sounds Normal, Regular Rate/Rhythm - Back Back: REPORTS: Limited ROM - Skin Skin: REPORTS: Warm, Dry, No Rash - Extremities Musculoskeletal: REPORTS: Back Pain - Neurological / Psychological Neuro / Psych: POSITIVE: Oriented X3, Motor Normal, Mood Appropriate Back Progress - Patient's Progress Pain Medication Addressed: POSITIVE: Yes Re-Examine Time: 01:09 Re-Examine Comment: Pain is improving. Status: POSITIVE: Improved MDM / ED Course: Emergency room course: When I initially went into the patient, she was sleeping in the [facility]. I did try to wake her up by shaking her foot, and it did not wake her up, so I decided to wait until she woke up on her own. She did wake up after approximately an hour to 90 minutes and then was complaining of pain. She does have an L3 fracture so I did give her a tablet Percocet by mouth, which did help pain better than the [place]. She is comfortable being discharged home with this time, we'll give her a home pack of Percocet to get her through to her appointment with Dr. Márquez, her neurosurgeon, tomorrow. - Consult Counseled: POSITIVE: Patient, RE: DX, RE: Need for F/U Patient Care Time - Estimated PCT Patient Care Time (In Minutes): 15 Vital Signs - Recent Vital Signs Vital Signs: Vital Signs (Last 8 hours) Temp Pulse Resp BP Pulse Ox 10/20/16 21:15 97.6 F 109 H 20 147/107 91 10/20/16 21:08 97.6 F 109 H 20 147/107 91 Discharge Clinical Impression: L3 vertebral fracture Discharge Disposition: Discharged to Home Condition: Stable Patient Instructions Given at Discharge: Vertebral Compression Fracture (ED), Lumbar Radiculopathy (ED)
[2016-10-21] MEDS ORDERED: oxyCODONE-ACETAMINOPHEN 5-325 TAB PO ONE (00:02)
[2016-10-21] MEDS ORDERED: oxyCODONE-ACETAMINOPHEN 5-325 TAB PO SCH (01:15)
== END 2016-10-21 01:21 | disposition home or self-care (01) ==
LOC: ER 21:01
DX: S32.038A Other fracture of third lumbar vertebra, initial encounter for closed fracture (principal)
CPT/HCPCS: 99282

== ENCOUNTER 2016-11-01 09:29 | Emergency (ER) | payer BC ==
[2016-11-01] MEDS ORDERED: oxyCODONE/APAP 7.5/325 Tab 1 TAB TAB PO ONE (09:46)
--- NOTE | 2016-11-01 09:54 | PDOC ---
Fall HPI - General Chief Complaint: Fall Stated Complaint: fell, right leg gave out Date Seen by Provider: 11/01/16 Time Seen by Provider: 09:49 Source: POSITIVE: Patient Exam Limitations: POSITIVE: No limitations Nurse's Notes Reviewed & Considered: Yes - History of Present Illness Initial Comments: Maki is a 41-year-old female who presents to the emergency department for evaluation of pain. Patient has a history of multiple back surgeries and recent problems with her surgeries including falls and back fractures. She has also had some chronic numbness in her right and left leg after her surgeries. Patient indicates last night her leg went out and she fell to the ground. She did complain of some discomfort and bruising in her right foot. That seems to be improving. She also had some bilateral swelling in her legs it got better when she kept her feet elevated. She does have acute on chronic pain in the lower back. She reports it feels like it's around L1-L2. This was a recent area of fusion and also symmetric placement. She did not take her home pain medication before coming into the ER. Patient usually takes oxycodone 15 mg as needed. There is no head injury. Chest continue to smoke. Patient reports on her last fall she had injury to her right knee. Have you received a tetanus shot in the past 10 years?: Unknown - Patient Home Medications Home Medications: Home Medications Albuterol Sulfate [Proair Hfa] 1 - 2 puff INH Q4-6H #1 puff 05/31/16 Gabapentin 2 tab PO TID #180 tab 07/24/16 Amlodipine Besylate 1 tab PO DAILY #30 tab 08/07/16 Lisinopril 1 tab PO DAILY #30 tab 08/07/16 Bupropion HCl [Wellbutrin Sr] 1 tab PO BID #60 tab 08/23/16 Amitriptyline HCl 1.5 tab PO QHS #45 tab 09/30/16 Alprazolam [Xanax] 1 tab PO QD PRN #30 tab 10/03/16 Metaxalone [Skelaxin] 800 mg PO TID PRN 10/18/16 oxyCODONE IR Tab [OxyIR Tab] 15 mg PO Q3H PRN PRN 11/01/16 - Patient Allergies Allergies/Adverse Reactions: Allergies Allergy/AdvReac Type Severity Reaction Status Date / Time tramadol AdvReac Mild Itching Verified 11/01/16 09:43 Past Medical History - heen HEENT History: Denies History Cardiovascular History: Hypertension Respiratory History: COPD, Other (please comment) Additional Respiratory History: smoker Gastrointestinal History: GERD, Pancreatitis Additional Gastrointestinal History: ABD PAIN, DIARRHEA. HOSPITAL ADMISSION FOR PANCREATITIS Genitourinary History: Denies History Endocrine History: Denies History Musculoskeletal History: Back Pain, Other (please comment) Prosthesis or Implant: Yes Additional Musculoskeletal History: chronic neck/back pain Neurological History: Denies History Blood Disorders: Anemia Psychiatric History: Depression, Anxiety Disorders History of Sexually Transmitted Diseases: No Cancer History: Denies History History of MDRO: No Tobacco Use: Current Every Day Smoker Alcohol Use: None Substance Use Type: None Previous Surgical History: Yes Type / Date of Surgery: T&A/ CERVICAL LEEP/hernia repair. L4,L5,S1 FUSION Anesthesia Reactions: No Malignant Hyperthermia: No Significant Family History: No pertinent family hx Past Medical History Reviewed: Reviewed - Changes Made ROS - Limitations ROS Limitations: No Limitations Constitution: REPORTS: Denies Symptoms Cardiovascular: REPORTS: Denies Cardiac Symptoms Respiratory: REPORTS: Denies Resp Symptoms Neurological: REPORTS: Other (Numbness in the legs which is chronic) Gastrointestinal: REPORTS: Denies GI Symptoms Endocrine: REPORTS: Denies Symptoms Musculoskeletal: REPORTS: Back Pain Genitourinary: REPORTS: Denies Symptoms Eyes: REPORTS: Denies Symptoms ENT: REPORTS: Denies Symptoms Skin: REPORTS: Denies Skin Symptoms Immunologic: POSITIVE: Denies Symptoms Psychiatric: POSITIVE: Denies Psych Symptoms Fall Physical Exam - General Appearance General Appearance: POSITIVE: Alert, Cooperative, No Acute Distress, No Evidence of Trauma - HEENT HEENT: POSITIVE: Head Inspection Nml, Eyes Inspection Nml - Pupil Size Pupil Size: 4 mm: Bilateral - Neck Neck: POSITIVE: Non Tender, Painless ROM - Respiratory / CVS Respiratory / CVS: POSITIVE: Chest Non Tender - Abdomen Abdomen: Soft: (All Quadrants), Normal Bowel Sounds: (All Quadrants), Denies Tenderness: (All Quadrants), No Splenomegaly: (All Quadrants), No Hepatomegaly: (All Quadrants) - Neuro / Psych Neuro / Psych: POSITIVE: Oriented X3 - Skin Skin: POSITIVE: Intact, Other (There is a staple line midline in the lumbar spine. There is no erythema no drainage or discharge. Incision is intact) - Back Back: POSITIVE: Other (There is tenderness to palpation around L1-L2. No cervical or thoracic tenderness to palpation) - Extremities Additional Extremities Details: There is a small amount of bruising on the dorsal aspect of the right foot. There is no bony tenderness to palpation. Right knee is atraumatic. Joint Exam: POSITIVE: Joints Normal, Other (Antalgic gait) Fall Progress - Patient's Progress MDM / ED Course: Hailey is a 41-year-old female who presents to the emergency department with pain after fall. Her vital signs are notable for hypertension and examination demonstrates recent surgical findings on her lower back. Differential diagnosis includes but is not limited to sprain, strain, fracture. With the wrist or foot pain there is no bony tenderness I suspect is most likely contusion or sprain. A CT scan of her lumbar spine was obtained which demonstrates chronic changes with no evidence of acute fracture. Patient was treated here with Percocet and also receives IM Toradol. She had some mild improvement of pain is discharged in stable condition. Patient Care Time - Estimated PCT Patient Care Time (In Minutes): 25 Vital Signs - Recent Vital Signs Vital Signs: Vital Signs (Last 8 hours) Temp Pulse Resp BP Pulse Ox 11/01/16 11:07 101 H 166/111 98 11/01/16 09:39 98.3 F 100 20 144/122 97 - VS Reviewed Vital Signs Reviewed: Yes Discharge Clinical Impression: Back pain Qualifiers: Back pain location: low back pain Chronicity: acute Back pain laterality: unspecified Sciatica presence: without sciatica Qualifier Code: (M54.5) Low back pain Discharge Disposition: Discharged to Home Condition: Fair Patient Instructions Given at Discharge: Acute Low Back Pain (ED) Additional Instructions: Thank you for coming to the emergency department. Please continue to use your oxycodone to help with pain. Please also use acetaminophen or ibuprofen. It will be important to follow-up with your primary care provider or your back specialist. Your CT scans did not show any new fractures today.
[2016-11-01 10:59] VITALS: TEMP 98.3
--- NOTE | 2016-11-01 11:03 | DI ---
CT LUMBAR SPINE W/O CONTRAST,11/01/2016 9:46 AM: Clinical History: Fall and trauma Previous Exam: October 18, 2016 Findings: Multiple helically acquired CT images are obtained through the lumbar spine without contrast, and dem onstrate stable postsurgical changes consistent with posterior transpedicular fusion and interbody fu reagan of L2-L5. Patient is also status post bilateral laminectomies throughout the lumbar spine. There is a stable fracture involving superior endplate of the posterior second lumbar vertebral body. There are new postsurgical changes consistent with vertebroplasty of the second third and fourth vert ebral bodies. Impression: 1. Stable fracture through the posterior portion of the superior endplate of the second lumbar verteb ral body. 2. New vertebroplasty. 3. Stable postsurgical changes.
[2016-11-01] MEDS ORDERED: KETOROLAC 60 MG/2 ML VIAL IM ONE (11:06)
[2016-11-01 12:01] VITALS: RESP 18
== END 2016-11-01 11:50 | disposition home or self-care (01) ==
LOC: ER 09:29
DX: M54.5 Low back pain (principal); R20.0 Anesthesia of skin; S90.31XA Contusion of right foot, initial encounter; J44.9 Chronic obstructive pulmonary disease, unspecified; I10 Essential (primary) hypertension; W18.39XA Other fall on same level, initial encounter; Z91.81 History of falling
CPT/HCPCS: 72131; 96372; 99283 ×2; J1885

== ENCOUNTER 2016-11-13 18:40 | Emergency (ER) | payer BC ==
[~2016-11-13 18:40] MED LIST: NALOXONE 0.4 MG/1 ML VIAL ONE
[2016-11-13] MEDS ORDERED: MIDAZOLAM 5 MG/1 ML IVP ONE ×4 (18:48→21:21)
[2016-11-13] MEDS ORDERED: VECURONIUM BROMIDE 10 MG VIAL IVP ONE (18:55)
[2016-11-13] MEDS ORDERED: MIDAZOLAM 5 MG/1 ML IV ONE (19:00)
[2016-11-13] MEDS ORDERED: Midazolam Inj 100 MG in Sodium Chloride 0.9% 80 ML IV SCH (19:15)
[2016-11-13 19:27] LABS: VENOUS PH 7.25 (7.32-7.42)
[2016-11-13] MEDS ORDERED: MIDAZOLAM 5 MG/1 ML ONE (19:27)
[2016-11-13 19:45] LABS: AMPHETAMINE SCREEN NEGATIVE (NEG); CANNABINOID SCREEN,URINE NEGATIVE (NEG); COCAINE SCREEN NEGATIVE (NEG); METHADONE URINE SCREEN NEGATIVE (NEG); METHAMPHETAMINES SCREEN,URINE NEGATIVE (NEG); OPIATE SCREEN,URINE POSITIVE (NEG); URINE SAMPLE TYPE CLEAN CATCH URINE; URINE SPECIFIC GRAVITY - MAN 1.025
--- NOTE | 2016-11-13 19:48 | DI ---
AP CHEST X-RAY, 11/13/2016 7:13 PM : Clinical History: The patient is obtunded. Status post intubation. Previous Exam: None at this facility. There is no acute soft tissue or bony abnormality. Heart size is normal. There is increased density b ehind the left heart. This can either represent an infiltrate in the left lower lobe or elevation of the left diaphragm with fluid in the fundus of the stomach. Mediastinal structures are normal. There are no pulmonary nodules. The endotracheal tube tip is 3 cm above the jeffery. Readin. The endotracheal tube tip is in the appropriate position. 2. There is a density behind the left heart either representing a left lower lobe infiltrate or flui d in the fundus of the stomach with elevation of the left diaphragm.
[2016-11-13] MEDS ORDERED: NALOXONE 0.4 MG/1 ML VIAL IVP ONE (19:52)
[2016-11-13] MEDS ORDERED: HYDRALAZINE 20 MG/1 ML IVP ONE (20:01)
--- NOTE | 2016-11-13 20:07 | DI ---
CT HEAD SCAN WITHOUT IV CONTRAST, 11/13/2016 7:14 PM : Clinical History: Head trauma. The patient fell. The patient is obtunded. Previous Exam: None at this facility. Scans are obtained from the foramen magnum to the vertex without IV contrast. The fourth ventricle is of normal size, shape, position and contour. The third and lateral ventricles are mildly dilated but are otherwise normal. There are no abnormal areas of increased or decreased d ensity. Specifically, there is no evidence of an acute intracranial hemorrhagic focus. There are no e xtracerebral mantles or shift of the midline structures. Bone window evaluation is normal. There are air-fluid levels in both maxillary sinuses. There is no nasogastric tube inserted, but there is a tub e inserted through the mouth and this is coiled within the mouth and in the cervical esophagus. READIN. Normal non contrast CT head scan. There is no acute intracranial hemorrhagic focus. 2. Air-fluid levels are present in both maxillary sinuses. This can be present if the times were mad e to insert nasogastric tubes through both nares, or the air-fluid levels would represent acute bilat eral maxillary sinusitis. 3. There is an orogastric tube that is coiled in the mouth and in the cervical esophagus.
[2016-11-13] MEDS ORDERED: SODIUM CHLORIDE 0.9% IV SCH (20:30)
[2016-11-13] MEDS ORDERED: ESMOLOL IV SCH (20:30)
[2016-11-13 20:42] LABS: BASOPHILS # (AUTO) 0.15 10*3/UL; BASOPHILS % (AUTO) 0.8 % (0-1); EOSINOPHILS # (AUTO) 0.03 10*3/UL; EOSINOPHILS % (AUTO) 0.2 % (0-8); HEMATOCRIT 38.8 % (37.0-47.0); HEMOGLOBIN 12.1 g/dL (12.0-16.0); LYMPHOCYTES # (AUTO) 1.89 10*3/uL; MEAN CORPUSCULAR HGB CONC 31.2 g/dL (33-37); MEAN CORPUSCULAR VOLUME 83.4 FL (81-99); MEAN PLATELET VOLUME 10.9 FL (7.4-12.2); MONOCYTES # (AUTO) 0.94 10*3/UL (0.3-0.8); NEUTROPHILS # (AUTO) 15.61 10*3/UL; NEUTROPHILS % (AUTO) 83.4 % (50-80); PLATELET MORPHOLOGY COMMENT NORMAL MORPHOLOGY (NORM); RBC MORPHOLOGY COMMENT NORMAL MORPHOLOGY (NORM); RED BLOOD COUNT 4.65 10^6/uL (4.20-5.40); WBC MORPHOLOGY COMMENT NORMAL MORPHOLOGY (NORM)
[2016-11-13] MEDS ORDERED: fentaNYL Inj 100 MCG/2 ML VIAL ONE (20:48)
[2016-11-13 20:51] LABS: BLOOD UREA NITROGEN 8 mg/dL (7-22); CALCIUM 9.3 mg/dL (8.7-10.7); EST GLOMERULAR FILTRATION > 60 (>60 ml/min/1.73m(2)); MAGNESIUM 2.1 mg/dL (1.6-2.4); SERUM ALBUMIN 4.2 g/dL (3.5-4.8)
[2016-11-13] MEDS ORDERED: fentaNYL Inj 100 MCG/2 ML VIAL IVP ONE (20:53)
[2016-11-13] MEDS ORDERED: Potassium Chloride 20 mEq 20 MEQ in Premix 1 BAG IV ONE (21:13)
[2016-11-13] MEDS ORDERED: Lactated Ringers 1,000 ML PRIMARY IV ONE (21:14)
[2016-11-13 21:15] VITALS: RESP 24; TEMP 97.6
[2016-11-13] MEDS ORDERED: PROPOFOL 10 MG/1 ML (200 MG/20 ML) VIAL IV ONE (21:20)
--- NOTE | 2016-11-13 22:42 | PDOC ---
Altered Mental Status HPI - General Chief Complaint: Neurological Complaints Stated Complaint: POSSIBLE SEIZURE Date Seen by Provider: 11/13/16 Time Seen by Provider: 18:40 Source: POSITIVE: EMS - History of Present Illness Initial Comments: Patient is a 41-year-old woman who was brought to the emergency department by EMS after a gentleman that was at her home called stating that he had found her down and that she had altered mental status. [facility] EMS found the patient with jerking movements though she did not have any loss of bowel or bladder continence. She had apparently fallen and struck her head on a coffee table that was present at her home. She was unable to follow any commands and was having substantial jerking motions and movements. She was placed on a spine board and brought to the emergency department. Here in the emergency department she is very agitated and not responding to any sort of verbal stimuli certainly not following any commands. She is requiring multiple people to hold her down. She comes with no further information regards to her clinical history. She does have geovanny in her back consistent with her recent spine surgery and she is wearing a back brace. She also has a bag of pills or brought in by EMS as well. - Patient Home Medications Home Medications: Home Medications Amlodipine Besylate 1 tab PO DAILY #30 tab 08/07/16 Lisinopril 1 tab PO DAILY #30 tab 08/07/16 Bupropion HCl [Wellbutrin Sr] 1 tab PO BID #60 tab 08/23/16 Amitriptyline HCl 1.5 tab PO QHS #45 tab 09/30/16 Metaxalone [Skelaxin] 800 mg PO TID PRN 10/18/16 oxyCODONE IR Tab [OxyIR Tab] 15 mg PO Q3H PRN PRN 11/01/16 Alprazolam [Xanax] 1 tab PO QD PRN #5 tab 11/04/16 Gabapentin 2 tab PO TID #180 tab 11/06/16 Albuterol Sulfate [Proair Hfa] 1 - 2 puff INH Q4-6H #1 puff 11/11/16 - Patient Allergies Allergies/Adverse Reactions: Allergies Allergy/AdvReac Type Severity Reaction Status Date / Time tramadol AdvReac Mild Itching Verified 11/01/16 09:43 Past Medical History - heen HEENT History: Denies History Cardiovascular History: Hypertension Respiratory History: COPD, Other (please comment) Additional Respiratory History: smoker Gastrointestinal History: GERD, Pancreatitis Additional Gastrointestinal History: ABD PAIN, DIARRHEA. HOSPITAL ADMISSION FOR PANCREATITIS Genitourinary History: Denies History Endocrine History: Denies History Musculoskeletal History: Back Pain, Other (please comment) Prosthesis or Implant: Yes Additional Musculoskeletal History: chronic neck/back pain Neurological History: Denies History Blood Disorders: Anemia Psychiatric History: Depression, Anxiety Disorders History of Sexually Transmitted Diseases: No LMP: t Cancer History: Denies History In Past Year Been Physically Harmed or Verbally Threatened: No (unknown) History of MDRO: No Tobacco Use: Never Smoker Alcohol Use: None Substance Use Type: None, Other (please comment) Previous Surgical History: Yes Type / Date of Surgery: T&A/ CERVICAL LEEP/hernia repair. L4,L5,S1 FUSION Anesthesia Reactions: No Malignant Hyperthermia: No Significant Family History: No pertinent family hx Past Medical History Reviewed: Reviewed - No Changes ROS - Limitations ROS Limitations: Mental Impairment, Other (please comment) (Unable to obtain any review of systems secondary to complete obtundation) Altered Mental Physical Exam - General Appearance General Appearance: POSITIVE: Other (Patient is not responding to any sort of commands worse verbal stimuli she has her eyes closed and flails her arms and legs about and at times tries to sit up but it is impossible to communicate with her at all.) - HEENT HEENT: POSITIVE: Other (She has swelling on her top lip consistent with a fall no other obvious areas of trauma on her face or head.) - Neuro/Psych Neurological: POSITIVE: Other (Impossible to evaluate her neurologic status she does however move all 4 extremities without any substantial obvious deficit she has reactive pupils but is completely unresponsive to verbal stimuli and will not communicate and is flailing about.) - Neck Neck: POSITIVE: Other (No obvious step-off lesions or trauma to her neck) - Respiratory Respiratory: POSITIVE: Other (She is not maintaining her airway well and is choking at times.) - Abdomen Abdomen: Soft: (All Quadrants), Normal Bowel Sounds: (All Quadrants) - Skin Skin: POSITIVE: Normal for Race, No Rash, Warm, Dry - Extremities Additional Extremities Details: No obvious fractures or abnormalities in her extremities Procedure - Intubation Time of Intubation: 17:00 Intubation Indications: Airway Protection Intubation Preparation: Equipment Checked Pre-Oxygenation Provided: Assisted with BMV, 100% FiO2 Induction Medications Given - Indicate Amount Given: Yes Versed (6) Paralytic Medication Given - Indicate Amount Given: Yes Vecuronium (10) Intubation Position: Cords Visualized Intubation Method: Orotracheal, Curved Blade Tube Size (cm): 7.5 Intubation Placement Confirmed: CO2 Detector Changed to Yellow: Yes, Mist Fogging in Tube: Yes, Symmetrical Chest Rise: Yes, Bilateral Breath Sounds: Yes , Chest X-Ray: Yes Intubation Complications: No complications Altered Mental Status - Results Reviewed By Me Xrays/CTs/US Reviewed: Yes Lab Results Reviewed: Yes Lab Results:: Laboratory Results 11/13/16 11/13/16 11/13/16 Range/Units 19:14 19:15 20:39 WBC 18.71 H (4.8-10.8) 10^3/uL RBC 4.65 (4.20-5.40) 10^6/uL Hgb 12.1 (12.0-16.0) g/dL Hct 38.8 (37.0-47.0) % MCV 83.4 (81-99) FL MCH 26.0 L (27-31) PG MCHC 31.2 L (33-37) g/dL RDW Std Deviation 53.6 H (39-50) fL RDW Coeff of Connor 18.1 H (11.5-14.5) % Plt Count 365 H (140-350) 10*3/uL MPV 10.9 (7.4-12.2) FL Immature Gran % (Auto) 0.5 (0-5) % Neut % (Auto) 83.4 H (50-80) % Lymph % (Auto) 10.1 (10-50) % Vernon % (Auto) 5.0 (5-15) % Eos % (Auto) 0.2 (0-8) % Baso % (Auto) 0.8 (0-1) % Immature Gran # (Auto) 0.09 10*3/UL Neut # (Auto) 15.61 10*3/UL Lymph # (Auto) 1.89 10*3/uL Vernon # (Auto) 0.94 H (0.3-0.8) 10*3/UL Eos # (Auto) 0.03 10*3/UL Baso # (Auto) 0.15 10*3/UL WBC Morphology Comment Normal morphology (NORM) Plt Morphology Comment Normal morphology (NORM) RBC Morph Comment Normal morphology (NORM) VBG pH 7.25 L (7.32-7.42) VBG pCO2 39 L (45-55) mmHg VBG HCO3 17 L (22-26) mmol/L VBG Base Excess -10 L (-2-2) MMOL/L Sodium 147 H (135-145) meq/L Potassium 2.5 L (3.8-5.2) meq/L Chloride 118 H (98-112) meq/L Carbon Dioxide 16 L (23-33) meq/L Anion Gap 13 (5-20) BUN 8 (7-22) mg/dL Creatinine 0.5 (0.50-1.20) mg/dL Estimated GFR > 60 (>60 ml/min/1.73m(2)) BUN/Creatinine Ratio 16.00 (6-20) Glucose 163 H (78-110) mg/dL Calculated Osmolality 305.0 H (267-292) mOsm/kg Lactic Acid (0.70-2.10) MMOL/L Calcium 9.3 (8.7-10.7) mg/dL Magnesium 2.1 (1.6-2.4) mg/dL Total Bilirubin 0.4 (0.3-1.2) mg/dL AST 24 (8-39) IU/L ALT 32 (9-52) IU/L Alkaline Phosphatase 127 H (38-126) IU/L Total Protein 7.6 (6.1-8.0) g/dL Albumin 4.2 (3.5-4.8) g/dL Globulin 3.4 (2.50-4.10) g/dL Albumin/Globulin Ratio 1.20 L (1.3-2.0) mg/g Ur Collection Type Clean catch urine U Specif Grav (Refrac) 1.025 Urine Opiates Screen Positive H (NEG) Ur Buprenorphine Negative (NEG) Ur Oxycodone Screen Negative (NEG) Urine Methadone Screen Negative (NEG) Ur Propoxyphene Screen Negative (NEG) Barbiturate Screen Negative (NEG) U Tricyclic Antidepress Negative (NEG) Phencyclidine Screen Negative (NEG) Amphetamines Screen Negative (NEG) U Methamphetamines Scrn Negative (NEG) Benzodiazepines Screen Negative (NEG) Cocaine Screen Negative (NEG) U Marijuana (THC) Screen Negative (NEG) 11/13/16 Range/Units 21:06 WBC (4.8-10.8) 10^3/uL RBC (4.20-5.40) 10^6/uL Hgb (12.0-16.0) g/dL Hct (37.0-47.0) % MCV (81-99) FL MCH (27-31) PG MCHC (33-37) g/dL RDW Std Deviation (39-50) fL RDW Coeff of Connor (11.5-14.5) % Plt Count (140-350) 10*3/uL MPV (7.4-12.2) FL Immature Gran % (Auto) (0-5) % Neut % (Auto) (50-80) % Lymph % (Auto) (10-50) % Vernon % (Auto) (5-15) % Eos % (Auto) (0-8) % Baso % (Auto) (0-1) % Immature Gran # (Auto) 10*3/UL Neut # (Auto) 10*3/UL Lymph # (Auto) 10*3/uL Vernon # (Auto) (0.3-0.8) 10*3/UL Eos # (Auto) 10*3/UL Baso # (Auto) 10*3/UL WBC Morphology Comment (NORM) Plt Morphology Comment (NORM) RBC Morph Comment (NORM) VBG pH (7.32-7.42) VBG pCO2 (45-55) mmHg VBG HCO3 (22-26) mmol/L VBG Base Excess (-2-2) MMOL/L Sodium (135-145) meq/L Potassium (3.8-5.2) meq/L Chloride (98-112) meq/L Carbon Dioxide (23-33) meq/L Anion Gap (5-20) BUN (7-22) mg/dL Creatinine (0.50-1.20) mg/dL Estimated GFR (>60 ml/min/1.73m(2)) BUN/Creatinine Ratio (6-20) Glucose (78-110) mg/dL Calculated Osmolality (267-292) mOsm/kg Lactic Acid 0.8 (0.70-2.10) MMOL/L Calcium (8.7-10.7) mg/dL Magnesium (1.6-2.4) mg/dL Total Bilirubin (0.3-1.2) mg/dL AST (8-39) IU/L ALT (9-52) IU/L Alkaline Phosphatase (38-126) IU/L Total Protein (6.1-8.0) g/dL Albumin (3.5-4.8) g/dL Globulin (2.50-4.10) g/dL Albumin/Globulin Ratio (1.3-2.0) mg/g Ur Collection Type U Specif Grav (Refrac) Urine Opiates Screen (NEG) Ur Buprenorphine (NEG) Ur Oxycodone Screen (NEG) Urine Methadone Screen (NEG) Ur Propoxyphene Screen (NEG) Barbiturate Screen (NEG) U Tricyclic Antidepress (NEG) Phencyclidine Screen (NEG) Amphetamines Screen (NEG) U Methamphetamines Scrn (NEG) Benzodiazepines Screen (NEG) Cocaine Screen (NEG) U Marijuana (THC) Screen (NEG) - Patient's Progress MDM / ED Course: This patient was suffering from severe altered mental status and was very combative requiring 4-5 people to try to hold her onto the gurney. She was not following commands at all and was not protecting her airway well. Decision was made to intubate her. After intubation she was sent immediately for CT scan of her head to rule out effects of her fall and possible head trauma. CT scan of her head was benign except for fluid in the maxillary sinuses. She was having substantial hypertension given a dose of hydralazine. We continue to give her some repeat doses of Versed and started her on a Versed drip. When her electrolytes came back she was noted to have substantial hypokalemia and she was started on some IV potassium. Her sodium and chloride are both elevated therefore she was switched from normal saline to lactated Ringer's as well. She had a normal lactic acid level. Urine tox screen was positive for opiates and no other substances. Ultimately it's unclear what the exact cause of her substantial altered mental status is she was transferred to tertiary care center to the care of a comptometer operator. Prior to transfer and at the recommendation of the comptometer operator we switched her to propofol given that she had had substantial hypertension while she was here and had need for ongoing sedation. Patient's vitals were stable at the time of transport the patient is transported to [facility] Patient Care Time - Estimated PCT Patient Care Time (In Minutes): 80 Vital Signs - Recent Vital Signs Vital Signs: Vital Signs (Last 8 hours) Temp Pulse Resp BP Pulse Ox 11/13/16 18:40 97.6 F 115 H 24 249/137 100 Discharge Clinical Impression: Altered mental status, unspecified Discharge Disposition: Transferred to Tertiary Care Facility Condition: Poor Date Decision to Transfer to Another Facility: 11/13/16 Time Decision to Transfer to Another Facility: 21:20
--- NOTE | 2016-11-13 22:46 | EKG ---
[address] [address] Measurements Intervals [place] Rate: 91 P: 76 RI: 164 QRS: 21 QRSD: 112 T: 83 QT: 378 QTc: 426 Interpretive Statements SINUS RHYTHM WITH OCCASIONAL SUPRAVENTRICULAR PREMATURE COMPLEXES MODERATE INTRAVENTRICULAR CONDUCTION DELAY [110+ ms QRS DURATION] NONSPECIFIC T-WAVE ABNORMALITY Compared to ECG 02/04/2016 03:18:10 Intraventricular conduction delay now present T-wave abnormality now present Incomplete right bundle-branch block no longer present Myocardial infarct finding no longer present Electronically Signed On 11-14-16 10:58:20 MDT by Audie Alcala MD [email or web address]
== END 2016-11-13 21:49 | disposition short-term general hospital (02) ==
LOC: ER 18:40
DX: R41.82 Altered mental status, unspecified (principal); R45.1 Restlessness and agitation; W01.198A Fall on same level from slipping, tripping and stumbling with subsequent striking against other object, initial encounter
CPT/HCPCS: 31500 ×2; 36415 ×2; 70450; 71010; 80053; 80305; 82803; 83605; 83735; 85025; 93005; 93010; 96374; 96375; 99285 ×2; A4216; J0360; J2250 ×2; J2310; J3010; J3480; J7050; J7120